=== PATIENT | female | born 1955 | race Caucasian/White ===

== ENCOUNTER 2016-06-20 23:24 | Emergency (ER) | payer OTHER ==
--- NOTE | ~2016-06-20 | CT4 ---
[facility] A Service of [facility] & [facility] / [facility] RADIOLOGY TEXT RESULTS PATIENT: KIM SIMMS LOCATION: [facility] : 53 UNIT #: [id number] AGE: [address]: Stacie Jeffery MD SEX: F ORDER DR: [id number] [facility] [address] [place], [place] [address] [id number] MR#: [id number] #: [id number] NAME: KIM SIMMS : 1955 SEX: F STUDY DATE/TIME: 06/21/2016 0:35 UNIT: BRY ROOM: STUDY DESCRIPTION: CT Abd and Pelv Wo Cont Attending Physician: Stacie Jeffery M.D. Ordering Physician: Stacie Jeffery M.D. Primary Care Physician: Magy Marin M.D. MEDICAL IMAGING REPORT This report is preliminary unless electronic signature is present EXAM CT abdomen and pelvis without contrast 06/21/2016 HISTORY Abdominal pain for 4 days. Mid- to right side abdominal pain and weakness. Previous history of hysterectomy, gastric band placement. COMPARISON CT abdomen and pelvis with contrast 06/24/2006. TECHNIQUE 3 mm noncontrast axial images through the abdomen and pelvis. Enteric contrast was not administered. Sagittal and coronal reformatted images were obtained. This CT exam was performed with one or more of the following radiation dose reduction techniques: automatic exposure control, adjustment of mA and/or kV according to patient size, and iterative reconstruction. FINDINGS ABDOMEN: Limited evaluation bowel due to lack of enteric contrast. The appendix is not confidently visualized but no pericecal inflammation is appreciated. No gross abnormal bowel wall thickening or inflammatory change is identified. Benign calcified granulomas are present within the right lung base, no acute basilar consolidations are seen. There is mild air fluid distension of the lower thoracic esophagus. Gastric band device is in place and appears similarly positioned to the 2006 exam. Multiple gallstones are present. No pericholecystic inflammation or biliary ductal dilation is seen. Noncontrast appearance of the liver, spleen, pancreas, adrenals and kidneys is within normal limits. No urinary tract stone or hydronephrosis STS. [facility] A Service of [facility] & [facility] / [facility] RADIOLOGY TEXT RESULTS PATIENT: KIM SIMMS LOCATION: [facility] : 53 UNIT #: [id number] AGE: [address]: Jose D,May SEX: F ORDER DR: is identified. PELVIS: Hysterectomy changes. Urinary bladder and rectum are normal. No pelvic adenopathy or free fluid is seen. Facet arthropathy is present at L3-L4, L4-L5, L5-S1. No acute osseous abnormalities are identified. There is fusion. IMPRESSION 1. No acute inflammatory changes are seen within the abdomen and pelvis to explain the patient's abdominal pain. While the appendix is not discretely visualized, no pericecal inflammation is appreciated. 2. No urinary tract stone or hydronephrosis. 3. Gastric band device is in place. There is mild air-fluid distension of the lower thoracic esophagus above the level of the gastric band. 4. Hysterectomy. Dictated by... Arabella Fuentes M.D. THIS IS AN ELECTRONICALLY VERIFIED REPORT Arabella Fuentes M.D. at 06/21/2016 10:01 PM HERMELINDA/sara TD: 06/21/2016 03:10 JOB #: [id number] MEDICAL IMAGING REPORT Page 1 of 1 COPY
[2016-06-20 22:06] LABS: BASOPHIL# 0.1 X10e3 (0-0.3); BASOPHIL% 1.3 % (0-2.5); EOSINOPHIL# 0.2 X10e3 (0-0.7); EOSINOPHIL% 2.7 % (0.0-7.0); HEMATOCRIT 41.3 % (35.0-45.0); HEMOGLOBIN 14.1 gm/dL (12.0-16.0); LYMPHOCYTE# 1.7 X10e3 (1.0-3.5); LYMPHOCYTE% 28.8 % (17.0-45.0); MEAN CELL VOLUME 85.2 FL (83-96); MEAN CORPUSCULAR HGB CONC 34.1 g/dL (30-36); MEAN PLATELET VOLUME 10.1 FL (6.5-11.5); MONOCYTE# 0.5 X10e3 (0-1.0); MONOCYTE% 8.3 % (3.0-12.0); NEUTROPHIL# 3.5 X10e3 (1.5-7.1); NEUTROPHIL% 58.9 % (40-75); PLATELET COUNT 172 X10e3 (140-420); RED BLOOD COUNT 4.85 X10e (3.90-5.30); RED CELL DISTRIBUTION WIDTH 13.7 % (11.0-15.5); WHITE BLOOD COUNT 5.9 X10e3 (4.0-10.5)
[2016-06-20 22:07] LABS: DIFF IND NO
[2016-06-20 22:31] LABS: ALBUMIN SERUM 4.3 g/dL (3.5-5.0); BILIRUBIN, DIRECT 0.3 mg/dL (0.0-0.2); BILIRUBIN,INDIRECT 1.9 mg/dL (0.0-0.9); BILIRUBIN,TOTAL 2.2 mg/dL (0.2-2.0); CALCIUM SERUM 9.8 mg/dL (8.4-10.2); GLOM FILT RATE Estimated 60.4 mL/min (>60); POTASSIUM 3.8 mmol/L (3.5-5.1); PROTEIN TOTAL SERUM 8.2 g/dL (6.0-8.3)
[~2016-06-20 23:24] MED LIST: BACTRIM DS TABL1 TAB PO; LOSARTAN POTAS100 MG PO; NO MEDICATIONS; PYRIDIUM PO
[2016-06-20 23:33] LABS: URINE SOURCE CLEAN CATCH
[2016-06-20 23:44] LABS: URINE APPEARANCE CLOUDY; URINE BILIRUBIN NEG (NEG); URINE BLOOD NEG (NEG); URINE COLOR DK YELLOW; URINE GLUCOSE NEG (NEG); URINE KETONE TRACE (NEG); URINE LEUKOCYTE ESTERASE 3+ (NEG); URINE NITRATE NEG (NEG); URINE PROTEIN NEG (NEG); URINE SPECIFIC GRAVITY 1.019 (1.003-1.035)
[2016-06-20 23:47] LABS: CULTURE INDICATED? YES; URINE BACTERIA AUWI NEG (NEGATIVE); URINE SQUAMOUS EPITHELIAL CELL OCC /[HPF]; UWBCS1 AUWI 50-100 (0-5)
== END 2016-06-21 01:45 | disposition home or self-care (01) ==
LOC: CED 23:24
DX: R10.9 Unspecified abdominal pain (principal); I10 Essential (primary) hypertension; Z87.442 Personal history of urinary calculi; Z90.710 Acquired absence of both cervix and uterus; Z88.0 Allergy status to penicillin; Z88.1 Allergy status to other antibiotic agents
CPT/HCPCS: 36415; 74176; 80048; 80076; 81003; 83690; 85025; 87086; 87088; 96361; 96374; 99284; C9113; J2405

== ENCOUNTER → 2016-07-26 | Outpatient (CLI) | payer OTHER ==
--- NOTE | ~2016-07-26 | EKG ---
PATIENT: KIM SIMMS UNIT #: [id number] Ventricular Rate: 71 BPM Atrial Rate: 71 BPM P-R Interval: 116 ms QRS Duration: 96 ms Q-T Interval: 414 ms QTC Calculation(Bezet): 449 ms P Ren[place]: 27 degrees Calculated R [place]: -2 degrees Calculated T [place]: 32 degrees Diagnosis Line: Normal sinus rhythm Diagnosis Line: Normal ECG Diagnosis Line: No previous ECGs available Diagnosis Line: Confirmed by MAR MELGAR MD ([id number]) on 07/26/2016 Diagnosis Line: 6:47:46 PM INTERPRETING MD: RAMÓN ROSAS
[2016-07-26 08:10] LABS: HEMATOCRIT 40.7 % (35.0-45.0); HEMOGLOBIN 13.8 gm/dL (12.0-16.0); MEAN CELL VOLUME 84.7 FL (83-96); MEAN CORPUSCULAR HEMOGLOBIN 28.7 PG (28-34); MEAN CORPUSCULAR HGB CONC 33.9 g/dL (30-36); MEAN PLATELET VOLUME 9.9 FL (6.5-11.5); RED BLOOD COUNT 4.8 X10e (3.90-5.30); RED CELL DISTRIBUTION WIDTH 14.6 % (11.0-15.5); WHITE BLOOD COUNT 3.8 X10e3 (4.0-10.5)
[2016-07-26 09:32] LABS: ALBUMIN SERUM 4.1 g/dL (3.5-5.0); BILIRUBIN,TOTAL 1.8 mg/dL (0.2-2.0); BUN/CREATININE RATIO 12.22; CREATININE SERUM 0.9 mg/dL (0.6-1.4); GLOM FILT RATE Estimated 68.6 mL/min (>60); POTASSIUM 3.3 mmol/L (3.5-5.1); PROTEIN TOTAL SERUM 6.7 g/dL (6.0-8.3)
== END | disposition home or self-care (01) ==
LOC: CAMB 07:33
PROVIDERS: Specialist
DX: Z01.818 Encounter for other preprocedural examination (principal)
CPT/HCPCS: 36415; 80053; 85027; 93005

== ENCOUNTER → 2016-08-02 | Day surgery (SDC) | payer OTHER ==
--- NOTE | ~2016-08-02 | OR ---
Unit #: [id number] #: [id number] Patient: KIM SIMMS [id number] [facility] [address] [place], [place] [address] [id number] MR#: [id number] NAME: KIM SIMMS ROOM: Date of Procedure: 08/02/2016 Admission Date: 08/02/2016 Surgeon: Horacio Barrera M.D. : 1955 Attending Physician: Horacio Barrera M.D. Primary Care Physician: Magy Marin M.D. OPERATIVE REPORT PREOPERATIVE DIAGNOSES Chronic cholecystitis and cholelithiasis. POSTOPERATIVE DIAGNOSES Chronic cholecystitis and cholelithiasis. PROCEDURE PERFORMED Laparoscopic cholecystectomy. ANESTHESIA General endotracheal anesthesia. ESTIMATED BLOOD LOSS 25 mL. INDICATIONS FOR PROCEDURE This is a 61-year-old female, who is having postprandial nausea and right upper quadrant pain radiating to the back. Radiologic evaluation revealed cholelithiasis with normal biliary ductal system. DESCRIPTION OF PROCEDURE The patient was admitted to [facility], positively identified, and transported to the operating room, and after induction of general endotracheal anesthesia, she was prepped and draped in the usual sterile fashion. A 5-mm supraumbilical incision was made. Veress needle was placed. Pneumoperitoneum was created. Then, a 5-mm trocar was placed. The laparoscope was introduced into peritoneal cavity under direct vision. The epigastric and lateral ports were placed. Gallbladder was grasped and elevated. The infundibulum was identified and retracted laterally. [place] was dissected out clearly identifying the cystic duct, gallbladder, and cystic duct-common duct junction and the posteriorly placed cystic artery. The cystic duct was swept upwards and then a single clip was placed in the cystic duct as it entered the gallbladder. Three clips were placed distally and the cystic duct was sharply divided. Posteriorly, the cystic artery was doubly clipped proximally and distally and divided. I then dissected the gallbladder from the liver bed using cautery dissection. Once it was freed up from its hepatic attachments, it was brought out through the epigastric port. The clips were well positioned. There was good hemostasis. I then closed the epigastric fascial defect using a neoClose device and the closure was airtight. I removed the laparoscope and trocars under direct vision. 0.5% Marcaine with epinephrine was infiltrated into each trocar site. Unit #: [id number] #: [id number] Patient: KIM SIMMS Skin was closed with 4-0 Monocryl subcuticular closure and Dermabond skin adhesive. Sponges and needle counts were correct x3. The patient tolerated the procedure well and was transported to recovery in stable condition. Findings and postoperative instructions were discussed with the family. Dictated by... Cely Alvarez/ambika TD: 08/03/2016 02:53 JOB #: [id number] OPERATIVE REPORT Page 1 of 1 X Horacio Barrera MD PROCEDURE OPERATIVE NOTE
== END | disposition home or self-care (01) ==
LOC: CSUR 08:33
DX: K80.10 Calculus of gallbladder with chronic cholecystitis without obstruction (principal); I10 Essential (primary) hypertension; Z88.0 Allergy status to penicillin; Z88.1 Allergy status to other antibiotic agents; Z87.442 Personal history of urinary calculi; Z80.1 Family history of malignant neoplasm of trachea, bronchus and lung; Z79.899 Other long term (current) drug therapy; Z90.710 Acquired absence of both cervix and uterus; Z98.84 Bariatric surgery status; Z98.890 Other specified postprocedural states
CPT/HCPCS: 88304; J0131; J0330; J1100; J1885; J2250; J2405; J3010; J3370